=== PATIENT | female | born 1950 | race African-American/Black ===

== ENCOUNTER 2016-04-24 11:51 | Outpatient (CLI) | payer MEDICARE | END 2016-04-24 11:52 | LOC: CARD 11:51 | PROVIDERS: ATTEND Internal Medicine Cardiovascular Disease | DX: I10 Essential (primary) hypertension (principal) | CPT/HCPCS: G0463 ==

== ENCOUNTER 2016-05-15 14:25 | Outpatient (CLI) | payer MEDICARE | END 2016-05-15 14:26 | LOC: CARD 14:25 | PROVIDERS: ATTEND Internal Medicine Cardiovascular Disease | DX: I10 Essential (primary) hypertension (principal) | CPT/HCPCS: G0463 ==

== ENCOUNTER 2016-06-12 11:56 | Outpatient (CLI) | payer MEDICARE | END 2016-06-12 11:57 | LOC: CARD 11:56 | PROVIDERS: ATTEND Internal Medicine Cardiovascular Disease | DX: I25.10 Atherosclerotic heart disease of native coronary artery without angina pectoris (principal); I10 Essential (primary) hypertension | CPT/HCPCS: G0463 ==

== ENCOUNTER 2016-11-13 14:40 | Outpatient (CLI) | payer MEDICARE | END 2016-11-13 14:43 | LOC: CARD 14:40 | PROVIDERS: ATTEND Internal Medicine Cardiovascular Disease | DX: I25.10 Atherosclerotic heart disease of native coronary artery without angina pectoris (principal); I27.2 Other secondary pulmonary hypertension; I10 Essential (primary) hypertension; E78.5 Hyperlipidemia, unspecified; G47.30 Sleep apnea, unspecified | CPT/HCPCS: G0463 ==